=== PATIENT | female | born 1985 | race Caucasian/White ===

== ENCOUNTER 2022-08-14 23:27 | Emergency (ER) | payer MEDICAID ==
[~2022-08-14] VITALS: Ht 170.2 cm; Wt 72.7 kg
[2022-08-15 00:34] LABS: ALANINE AMINOTRANSFERASE 36 U/L (12-78); ALBUMIN/GLOBULIN RATIO 0.9 (1.1-1.5); ALKALINE PHOSPHATASE 81 IU/L (46-116); ANION GAP 7 (8-16); ASPARTATE AMINO TRANSFERASE 37 U/L (10-37); BILIRUBIN,TOTAL 0.5 MG/DL (0.1-1.0); BLOOD UREA NITROGEN 19 MG/DL (7-18); BUN/CREATININE RATIO 21.1 (6.6-38.0); CHLORIDE 105 MMOL/L (99-107); GLUCOSE 115 MG/DL (70-104); SODIUM 142 MMOL/L (135-145); TOTAL CARBON DIOXIDE 29.9 MMOL/L (24-32); TOTAL PROTEIN 6.4 G/DL (6.4-8.2); eGFR 71 ML/MIN
[2022-08-15 00:41] LABS: BASOPHILS % (AUTO) 0.6 % (0-1); EOSINOPHILS # (AUTO) 0.2 X10'3 (0-0.9); HEMATOCRIT 31.1 % (35.0-45.0); HEMOGLOBIN 10.7 g/dl (12.0-16.0); LYMPHOCYTES # (AUTO) 1.3 X10'3 (1.1-4.8); LYMPHOCYTES % (AUTO) 27.8 % (21-51); MEAN CORPUSCULAR HEMOGLOBIN 28.1 PG (27.0-31.0); MEAN CORPUSCULAR HGB CONC 34.5 g/dL (33.0-36.5); MEAN CORPUSCULAR VOLUME 81.5 FL (78-98); MEAN PLATELET VOLUME 7.4 FL (7.4-10.4); MONOCYTES # (AUTO) 0.4 X10'3 (0-0.9); MONOCYTES % (AUTO) 9.5 % (2-12); NEUTROPHILS # (AUTO) 2.6 X10'3 (1.8-7.7); NEUTROPHILS % (AUTO) 58.1 % (42-75); PLATELET COUNT 152 X10'3 (140-440); RED BLOOD COUNT 3.82 X10'6 (4.20-5.60); RED CELL DISTRIBUTION WIDTH 14.6 % (11.5-14.5); WHITE BLOOD COUNT 4.5 X10'3 (4.5-11.0)
[2022-08-15 00:43] LABS: ACETAMINOPHEN < 2.0 UG/ML (10-30); ETHANOL < 0.010 GM/DL (0.0-0.010)
[2022-08-15 00:49] LABS: POTASSIUM 2.8 MMOL/L (3.5-5.1)
[2022-08-15] MEDS ORDERED: potassium Cl 20 mEq SR tablet PO STA (00:54)
[2022-08-15] MEDS ORDERED: POTASSIUM BICARB 20meq eff tab 20 MEQ TABLET.EFF PO ONE (00:55)
[2022-08-15 01:03] LABS: CLARITY,URINE SLIGHTLY CLOUDY (Clear); COLOR,URINE YELLOW (Yellow); GLUCOSE, URINE NEGATIVE (Neg); KETONES,URINE NEGATIVE (Neg); LEUKOCYTE ESTERASE ,URINE NEGATIVE (Neg); NITRITES, URINE NEGATIVE (Neg); OCCULT BLOOD,URINE TRACE-INTACT (Neg); PH,URINE 5.5 (4.8-8.0); PROTEIN,URINE 30 mg/dl (Neg); URINE HCG NEGATIVE (NEG); UROBILINOGEN,URINE 0.2 E.U/dL (0.2-1.0)
[2022-08-15 01:08] LABS: UA COLLECTION TYPE STRAIGHT CATH
[2022-08-15 01:14] LABS: BACTERIA,URINE 1+ /HPF (Neg); SQUAMOUS EPITHELIAL CELL,UR FEW /LPF (FEW); URINE AMPHETAMINE SCREEN POSITIVE (Neg); URINE BARBITUATE SCREEN NEGATIVE (Neg); URINE BENZODIAZEPINES SCREEN NEGATIVE (Neg); URINE CANNABINOID SCREEN NEGATIVE (Neg); URINE COCAINE SCREEN NEGATIVE (Neg); URINE METHADONE SCREEN NEGATIVE (Neg); URINE OPIATE SCREEN NEGATIVE (Neg); URINE PHENCYCLIDINE SCREEN NEGATIVE (Neg)
[2022-08-15 01:15] LABS: MUCUS STRANDS FEW /LPF (Neg)
[2022-08-15 01:16] LABS: TRANSITIONAL EPI CELLS,URINE FEW /HPF; YEAST FEW /HPF (NEGATIVE)
[2022-08-15 01:17] LABS: WBC,URINE 20-30 /HPF (0-4)
[2022-08-15 04:31] VITALS: BP 90/53
== END 2022-08-15 05:43 | disposition home or self-care (01) ==
LOC: ER 23:28
DX: F15.10 Other stimulant abuse, uncomplicated (principal); Z59.00 Homelessness unspecified
CPT/HCPCS: 36415; 80053; 80305; 80320; 80329; 81001; 81025; 85025; 93005; 99284; A4353

== ENCOUNTER 2022-08-17 18:50 | Emergency (ER) | payer MEDICAID ==
[~2022-08-17] VITALS: Ht 175.3 cm; Wt 54.5 kg
[2022-08-17] MEDS ORDERED: risperiDONE 2mg tablet PO ONE (19:10)
[2022-08-17] MEDS ORDERED: LORazepam 1 MG tablet PO ONE (19:10)
[2022-08-17] MEDS ORDERED: quetiapine 100mg tablet PO STA (19:12)
[2022-08-17] MEDS ORDERED: diphenhydrAMINE 50 mg/ml inj IM ONE (19:25)
[2022-08-17] MEDS ORDERED: haloperidol lactate 5mg/ml inj IM ONE (19:25)
[2022-08-17] MEDS ORDERED: LORazepam 2 mg/ml vial IM ONE (19:25)
[2022-08-17 19:48] LABS: BASOPHILS % (AUTO) 1.1 % (0-1); EOSINOPHILS # (AUTO) 0.2 X10'3 (0-0.9); EOSINOPHILS % (AUTO) 3.9 % (0-6); HEMATOCRIT 38.2 % (35.0-45.0); HEMOGLOBIN 12.8 g/dl (12.0-16.0); LYMPHOCYTES # (AUTO) 1.1 X10'3 (1.1-4.8); LYMPHOCYTES % (AUTO) 24.4 % (21-51); MEAN CORPUSCULAR HEMOGLOBIN 27.5 PG (27.0-31.0); MEAN CORPUSCULAR HGB CONC 33.4 g/dL (33.0-36.5); MEAN CORPUSCULAR VOLUME 82.2 FL (78-98); MONOCYTES # (AUTO) 0.4 X10'3 (0-0.9); MONOCYTES % (AUTO) 9.4 % (2-12); NEUTROPHILS # (AUTO) 2.7 X10'3 (1.8-7.7); NEUTROPHILS % (AUTO) 61.2 % (42-75); PLATELET COUNT 226 X10'3 (140-440); RED BLOOD COUNT 4.64 X10'6 (4.20-5.60); RED CELL DISTRIBUTION WIDTH 14.4 % (11.5-14.5); WHITE BLOOD COUNT 4.4 X10'3 (4.5-11.0)
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
[2022-08-17] MEDS ORDERED: NO HOME MEDS (20:01)
[2022-08-17 20:02] LABS: ALANINE AMINOTRANSFERASE 40 U/L (12-78); ALBUMIN 3.6 G/DL (3.4-5.0); ALBUMIN/GLOBULIN RATIO 0.8 (1.1-1.5); ALKALINE PHOSPHATASE 74 IU/L (46-116); ANION GAP 6 (8-16); ASPARTATE AMINO TRANSFERASE 35 U/L (10-37); BILIRUBIN,TOTAL 0.8 MG/DL (0.1-1.0); BLOOD UREA NITROGEN 17 MG/DL (7-18); BUN/CREATININE RATIO 21.3 (6.6-38.0); CALCIUM 8.8 MG/DL (8.5-10.1); CHLORIDE 102 MMOL/L (99-107); GLUCOSE 77 MG/DL (70-104); POTASSIUM 4.2 MMOL/L (3.5-5.1); SODIUM 137 MMOL/L (135-145); TOTAL CARBON DIOXIDE 29.2 MMOL/L (24-32); TOTAL PROTEIN 7.9 G/DL (6.4-8.2); eGFR 82 ML/MIN
[2022-08-17 20:03] LABS: CLARITY,URINE CLEAR (Clear); COLOR,URINE YELLOW (Yellow); GLUCOSE, URINE NEGATIVE (Neg); KETONES,URINE NEGATIVE (Neg); LEUKOCYTE ESTERASE ,URINE SMALL (Neg); NITRITES, URINE NEGATIVE (Neg); OCCULT BLOOD,URINE NEGATIVE (Neg); PROTEIN,URINE NEGATIVE (Neg); URINE HCG NEGATIVE (NEG); UROBILINOGEN,URINE 0.2 E.U/dL (0.2-1.0)
[2022-08-17 20:11] LABS: UA COLLECTION TYPE CLN CATCH MIDSTREAM
[2022-08-17 20:17] LABS: ETHANOL < 0.010 GM/DL (0.0-0.010)
[2022-08-17 20:18] LABS: URINE AMPHETAMINE SCREEN POSITIVE (Neg); URINE BARBITUATE SCREEN NEGATIVE (Neg); URINE BENZODIAZEPINES SCREEN NEGATIVE (Neg); URINE CANNABINOID SCREEN NEGATIVE (Neg); URINE COCAINE SCREEN NEGATIVE (Neg); URINE METHADONE SCREEN NEGATIVE (Neg); URINE OPIATE SCREEN NEGATIVE (Neg); URINE PHENCYCLIDINE SCREEN NEGATIVE (Neg)
[2022-08-17 20:27] LABS: BACTERIA,URINE FEW /HPF (Neg); MUCUS STRANDS FEW /LPF (Neg); RBC,URINE 0-2 /HPF (0-2); SQUAMOUS EPITHELIAL CELL,UR FEW /LPF (FEW)
--- NOTE | 2022-08-17 20:47 | NUR ---
The patient is currently sleeping
[2022-08-17] MEDS: sulfamethoxazole/trimethoprim DS (800/160mg) tablet PO SCH (20:55)
[2022-08-17] MEDS ORDERED: sulfamethoxazole/trimethoprim DS (800/160mg) tablet PO ONE (20:55)
--- NOTE | 2022-08-17 21:04 | NUR ---
records sent to [facility]
--- NOTE | 2022-08-17 23:46 | NUR ---
The patient appears to be sleeping
--- NOTE | 2022-08-18 01:07 | NUR ---
The patient appears to be sleeping
--- NOTE | 2022-08-18 02:49 | NUR ---
The patient appears to be sleeping
--- NOTE | 2022-08-18 03:52 | NUR ---
The patient appears to be sleeping
--- NOTE | 2022-08-18 05:10 | NUR ---
The patient appears to be sleeping
--- NOTE | 2022-08-18 06:30 | NUR ---
Pt is lying in bed, appears to be sleeping.
[2022-08-18] MEDS: sulfamethoxazole/trimethoprim DS (800/160mg) tablet PO SCH ×2 (08:00→20:00)
--- NOTE | 2022-08-18 08:30 | NUR ---
Pt declined to eat breakfast and to take her PO ABX, prefers to sleep. Will reoffer breakfast and med again later.
--- NOTE | 2022-08-18 10:33 | NUR ---
Pt got up and walked to the bathroom.
--- NOTE | 2022-08-18 10:40 | NUR ---
Pt ate a little of her breakfast. Pt reports she is feeling "much better." When asked pt if she heard any voices, pt replied, "only when I'm walking in the street doing something I'm not supposed to." Pt made this statement then closed her eyes and covered her head with her blanket. Pt interacts minimally, though appears to be disorganized.
--- NOTE | 2022-08-18 10:44 | NUR ---
Discovered that pt left her sheet and blanket in the bathroom and returned to bed without them. Provided pt with a clean blanket.
--- NOTE | 2022-08-18 12:30 | NUR ---
Pt is lying in bed, appears to be sleeping.
--- NOTE | 2022-08-18 13:15 | NUR ---
[facility] attempted to evaluate but pt answered one question then would not answer anymore but closed her eyes and appeared to be ignoring the interviewer and sleeping.
--- NOTE | 2022-08-18 15:15 | NUR ---
Pt is lying in bed on her left side, she appears to be sleeping.
--- NOTE | 2022-08-18 17:15 | NUR ---
Pt is lying in bed on her back, she appears to be sleeping.
--- NOTE | 2022-08-18 20:00 | NUR ---
Received pt sleeping under her covers. Dinner tray at bedside. Tried to talk with pt but she ignored this RN.
--- NOTE | 2022-08-18 23:04 | NUR ---
Pt up to use the restroom, pt back to bed and appears to be sleeping.
--- NOTE | 2022-08-19 02:33 | NUR ---
Pt appears to be sleeping.
--- NOTE | 2022-08-19 05:02 | NUR ---
Pt appears to be sleeping.
--- NOTE | 2022-08-19 05:03 | NUR ---
[facility] [place] nurse to nurse done with [place] [facility].
--- NOTE | 2022-08-19 06:30 | NUR ---
Pt is lying in bed on her back, she appears to be sleeping.
--- NOTE | 2022-08-19 08:05 | NUR ---
[facility] called to report pt has been accepted at [facility] [address]. They will call back with a scrap picker time.
[2022-08-19] MEDS: sulfamethoxazole/trimethoprim DS (800/160mg) tablet PO SCH (08:44)
--- NOTE | 2022-08-19 09:09 | NUR ---
[facility] office called to report [employer] time for transfer is [id number].
--- NOTE | 2022-08-19 10:19 | NUR ---
Pt discharged, transferred to [facility]. Pt ambulated off the unit accompanied by courier delivery driver and security.
[2022-08-19 10:21] VITALS: BP 105/66
== END 2022-08-19 10:19 ==
LOC: ER 18:51
DX: F15.159 Other stimulant abuse with stimulant-induced psychotic disorder, unspecified (principal); Z20.822 Contact with and (suspected) exposure to COVID-19; N39.0 Urinary tract infection, site not specified; Z59.00 Homelessness unspecified
CPT/HCPCS: 36415; 80053; 80305; 80320; 81001; 81025; 84443; 85025; 87811; 96372; 99285; J1200; J1630; J2060

== ENCOUNTER 2022-09-06 21:19 | Emergency (ER) | payer MEDICAID ==
[~2022-09-06] VITALS: Ht 157.5 cm; Wt 54.5 kg
[~2022-09-06 21:19] MED LIST: NO HOME MEDS
[2022-09-06] MEDS ORDERED: SULF1TAB49 PO (21:28)
[2022-09-06 21:29] VITALS: BP 120/64
== END 2022-09-06 21:37 | disposition home or self-care (01) ==
LOC: ER 21:20
DX: L03.116 Cellulitis of left lower limb (principal); F15.10 Other stimulant abuse, uncomplicated; Z59.00 Homelessness unspecified
CPT/HCPCS: 99283

== ENCOUNTER 2022-09-14 02:57 | Emergency (ER) | payer MEDICAID ==
[~2022-09-14] VITALS: Ht 167.6 cm; Wt 63.6 kg
[~2022-09-14 02:57] MED LIST changes: +SULF1TAB49 PO
[2022-09-14 03:16] VITALS: BP 141/88
--- NOTE | 2022-09-14 05:44 | NUR ---
Informed that the pt refused the ultrasound and left the department.
== END 2022-09-14 05:45 | disposition left against medical advice (07) ==
LOC: ER 02:58
DX: M79.89 Other specified soft tissue disorders (principal); M79.602 Pain in left arm; F15.10 Other stimulant abuse, uncomplicated; Z59.00 Homelessness unspecified
CPT/HCPCS: 99281